=== PATIENT | male | born 1970 | race Caucasian/White ===

== ENCOUNTER 2021-03-08 01:48 | Emergency (ER) | payer BC ==
[~2021-03-08] VITALS: Ht 180.3 cm; Wt 88.5 kg
[2021-03-08] MEDS ORDERED: ALLOPURINOL 10100 M3 PO (02:14)
[2021-03-08 03:21] LABS: ABSOLUTE BASOPHILS 0.1 thou/uL (0.0-0.2); ABSOLUTE EOSINOPHILS 0.1 thou/uL (0.0-0.7); ABSOLUTE LYMPHOCYTES 1.4 thou/uL (0.8-5.3); ABSOLUTE MONOCYTES 0.4 thou/uL (0.0-1.2); ABSOLUTE NEUTROPHILS 10.1 thou/uL (1.6-8.1); BASOPHILS 0.9 %; EOSINOPHILS 0.7 %; HEMATOCRIT 42.1 % (42.0-52.0); HEMOGLOBIN 14.6 gm/dL (14.0-18.0); LYMPHOCYTES 11.7 %; MCH 32.5 pg (26.0-34.0); MCHC 34.7 g/dL (28.0-37.0); MCV 93.6 fL (80.0-100.0); MONOCYTES 3.4 %; MPV 8.8 fl. (7.2-11.1); NUCLEATED RBCS 0 /100WBC; PLATELET COUNT* 241 thou/uL (150-400); POLYS 83.3 %; RBC 4.49 mil/uL (4.50-6.00); RDW-CV 13.1 % (10.5-14.5); WBC 12.1 thou/uL (4.0-11.0)
[2021-03-08 03:27] LABS: CALCIUM 8.5 mg/dL (8.5-10.1); CREATININE 1.3 mg/dL (0.6-1.3); POTASSIUM 4.3 mmol/L (3.5-5.1)
[2021-03-08 03:31] LABS: ALBUMIN 3.9 g/dL (3.4-5.0); TOTAL BILIRUBIN 0.7 mg/dL (<0.1-1.0); TOTAL PROTEIN 7.6 g/dL (6.4-8.2)
[2021-03-08] MEDS ORDERED: ZOFRAN ODT4 MG PO (03:55)
[2021-03-08] MEDS ORDERED: HYDROCODON-ACE1 EAC7 PO (03:55)
[2021-03-08] MEDS ORDERED: TORADOL 10 MG T10 MG PO (03:56)
[2021-03-08 04:33] VITALS: BP 148/89
== END 2021-03-08 04:34 | disposition home or self-care (01) ==
LOC: M.ERS 01:48
PROVIDERS: Personal Emergency Response Attendant
DX: N23 Unspecified renal colic (principal)